=== PATIENT | female | born 1990 | race Caucasian/White ===

== ENCOUNTER 2016-07-24 13:32 | Emergency (ER) | payer OTHER ==
[~2016-07-24] VITALS: Ht 160 cm; Wt 70.0 kg
[~2016-07-24 13:32] MED LIST: IBUP800T25 PO
[2016-07-24 13:35] VITALS: Ht 160 cm; Wt 70.0 kg
[2016-07-24] MEDS ORDERED: SOD CHLORIDE 0.9% 1,000 ML IV STA (15:54)
[2016-07-24] MEDS ORDERED: KETOROLAC 15 MG INJ IV STA (15:54)
[2016-07-24 16:36] LABS: ADD SCAN DIFF NO
[2016-07-24 16:40] LABS: BASOPHIL # 0.1 10^3/ul (0.0-0.1); BASOPHILS % 0.5 % (0.0-2.0); EOSINOPHILS # 0.1 10^3/ul (0.0-0.5); HEMATOCRIT 40.9 % (37.0-47.0); HEMOGLOBIN 13.6 g/dl (12.0-16.0); LYMPHOCYTES # 4.4 10^3/ul (0.8-2.9); LYMPHOCYTES % 38.7 % (15.0-51.0); MEAN CORPUSCULAR HEMOGLOBIN 30.6 pg (29.0-33.0); MEAN CORPUSCULAR HGB CONC 33.3 g/dl (32.0-37.0); MEAN CORPUSCULAR VOLUME 92.1 fl (82.0-101.0); MEAN PLATELET VOLUME 10.4 fl (7.4-10.4); MONOCYTE # 0.7 10^3/ul (0.3-0.9); NEUTROPHIL # 6.1 10^3/ul (1.6-7.5); NEUTROPHILS % 53.4 % (39.0-77.0); PLATELET COUNT 248 10^3/UL (140-415); RED BLOOD COUNT 4.44 10^6/ul (4.20-5.40); RED CELL DISTRIBUTION WIDTH 12.1 % (11.5-14.5); WHITE BLOOD COUNT 11.4 10^3/ul (4.8-10.8)
[2016-07-24 16:51] LABS: ALBUMIN 4.5 g/dl (3.3-4.9); POTASSIUM 4.1 mmol/L (3.5-5.1)
[2016-07-24 16:54] LABS: ALBUMIN/GLOBULIN RATIO 1.55; BILIRUBIN,INDIRECT 0.3 mg/dl (0-1.1); BILIRUBIN,TOTAL 0.3 mg/dl (0.2-1.3); CALCIUM 9.5 mg/dl (8.4-10.2); CREATININE 0.46 mg/dl (0.44-1.00); TOTAL PROTEIN 7.4 g/dl (6.1-8.1)
[2016-07-24 16:57] LABS: ADD UMIC NO; URINE BILIRUBIN (Dip) NEGATIVE (NEGATIVE); URINE BLOOD (Dip) NEGATIVE (NEGATIVE); URINE COLOR LT. YELLOW (YELLOW); URINE GLUCOSE (Dip) NEGATIVE (NEGATIVE); URINE KETONES (Dip) NEGATIVE (NEGATIVE); URINE LEUKOCYTE ESTERASE (Dip) NEGATIVE (NEGATIVE); URINE NITRITE (Dip) NEGATIVE (NEGATIVE); URINE TOTAL PROTEIN (Dip) NEGATIVE (NEGATIVE); URINE UROBILINOGEN (Dip) 0.2 E.U./dL (0.1-1.0)
--- NOTE | 2016-07-24 17:15 | RADRPT ---
PROCEDURE: CT Abdomen and Pelvis without contrast. CLINICAL INDICATION: Abdominal and pelvic pain. Left flank pain. TECHNIQUE: CT scan of the abdomen and pelvis without contrast was performed. Coronal and sagittal reformatted images were obtained from the axial source images. Images were reviewed on a high-resolu OLX PACS workstation. Total exam DLP is 775.38 mGy-cm. CTDIvol is 13.74 mGy. One or more of the f ollowing dose reduction techniques were used: Automated exposure control, adjustment of the mA and/o r kV according to patient size, use of iterative reconstruction technique. COMPARISON: None. FINDINGS: The lung bases are normal. There is no pleural effusion. The liver is normal in size and attenuation. There is no focal hepatic lesion. The gallbladder and bile ducts are normal. The spleen is normal in size. There is no focal splenic lesion. Both adrenals are normal with no enlargement or mass. The pancreas is unremarkable with no mass or evidence of pancreatitis. There is no renal mass or hydronephrosis. There is no renal calculus or ureteral calculus. The abdominal aorta is not dilated. There is no retroperitoneal lymphadenopathy or mass. There is no pelvic lymphadenopathy or mass. The bladder and distal ureters are normal. The periappendiceal region is unremarkable with no evidence of appendicitis. The appendix is well se en and appears normal. The bowel and mesentery are normal. There is no free fluid or free gas. The osseous structures are unremarkable with no fracture or lytic lesion. IMPRESSION: 1. No urinary tract calculus or hydronephrosis. 2. Normal appendix. 3. Unremarkable CT scan of the abdomen and pelvis. RPTAT: QQ .Abdiel Crawford MD, Date Time Electronically viewed and signed by .Abdiel Crawford MD, on 07/24/2016 17:14 .R/
[2016-07-24] MEDS ORDERED: TRAM50TA2 PO (17:21)
[2016-07-24 18:06] VITALS: BP 105/54; PULSE 70; RESP 19; TEMP 98.6
--- NOTE | 2016-07-24 18:08 | ERD ---
ER Documentation Chief Complaint Date/Time DATE: 07/24/16 TIME: 18:02 Chief Complaint lt flank pain x 2 weeks , finished antibiotics for uti last week HPI 25-year-old otherwise healthy woman presents with intermittent left flank pain 2 weeks. She recently finished a course of Cefdnir oral antibiotic for urinary tract infection. She denies hematuria, no fevers or chills, no weight loss, no chest pain or shortness of breath. Patient has been using ibuprofen at home without relief of flank pain. ROS All systems reviewed and are negative except as per history of present illness. Medications Home Meds Active Scripts Tramadol HCl (Tramadol HCl) 50 Mg Tablet, 50 MG PO Q6, #20 TAB Prov:DEE FRAUSTO MD 07/24/16 Ibuprofen* (Motrin*) 800 Mg Tab, 800 MG PO Q6, #30 TAB Prov:ANTHONY DAVILA PA-C 12/25/15 PMhx/Soc Recent UTI Medical and Surgical Hx: pt denies Medical Hx, pt denies Surgical Hx History of Surgery: No Anesthesia Reaction: No Hx Neurological Disorder: No Hx Respiratory Disorders: No Hx Cardiac Disorders: No Hx Psychiatric Problems: No Hx Miscellaneous Medical Probl: No Hx Alcohol Use: No Hx Substance Use: No Hx Tobacco Use: No Smoking Status: Never smoker FmHx Family History: No diabetes Physical Exam Vitals Vital Signs Date Time Temp Pulse Resp B/P Pulse Ox O2 Delivery O2 Flow Rate FiO2 07/24/16 13:35 98.0 82 18 112/66 99 Physical Exam GENERAL: Well-developed, well-nourished, well-hydrated, in no apparent distress , looks nontoxic in appearance HEENT: Moist mucous membranes, pink conjunctiva, no cervical spine tenderness or step-off deformities, no goiter, no jaundice or icterus, extraocular movements intact without pain. No submandibular induration, and no pharyngeal erythema NEURO: Alert and oriented 3, cranial nerves II through XII intact bilaterally, pupils equal round reactive to light, no focal deficits or facial asymmetry, sensation intact distally Strength 5/5 in upper and lower extremities bilaterally CARDIAC: Regular rate and rhythm, no murmurs rubs or gallops LUNGS: Clear bilaterally no wheezing crackles or stridor ABDOMEN: Soft nontender, no guarding, no rigidity, no rebound, no psoas sign no obturator sign. Normoactive bowel sounds SKIN: Warm and dry to touch, no abrasions, contusions, or hematomas, no lacerations, no ecchymosis, no target lesions, and without ulcers EXTREMITIES: No clubbing cyanosis or edema, calves are bilaterally symmetrical, no Homans sign, no popliteal cord sign. Distal pulses equal and bilateral PSYCH: Normal affect without agitation or irritability Result Diagram: 07/24/16 1625 07/24/16 1625 Results 24 hrs Laboratory Tests Test 07/24/16 16:25 07/24/16 16:34 White Blood Count 11.410^3/ul Red Blood Count 4.4410^6/ul Hemoglobin 13.6g/dl Hematocrit 40.9% Mean Corpuscular Volume 92.1fl Mean Corpuscular Hemoglobin 30.6pg Mean Corpuscular Hemoglobin Concent 33.3g/dl Red Cell Distribution Width 12.1% Platelet Count 48631^3/UL Mean Platelet Volume 10.4fl Neutrophils % 53.4% Lymphocytes % 38.7% Monocytes % 6.0% Eosinophils % 1.0% Basophils % 0.5% Nucleated Red Blood Cells % 0.0/100WBC Neutrophils # 6.110^3/ul Lymphocytes # 4.410^3/ul Monocytes # 0.710^3/ul Eosinophils # 0.110^3/ul Basophils # 0.110^3/ul Nucleated Red Blood Cells # 0.010^3/ul Sodium Level 140mmol/L Potassium Level 4.1mmol/L Chloride Level 103mmol/L Carbon Dioxide Level 23mmol/L Anion Gap 18 Blood Urea Nitrogen 7mg/dl Creatinine 0.46mg/dl Glucose Level 86mg/dl Calcium Level 9.5mg/dl Total Bilirubin 0.3mg/dl Direct Bilirubin 0.00mg/dl Indirect Bilirubin 0.3mg/dl Aspartate Amino Transf (AST/SGOT) 21IU/L Alanine Aminotransferase (ALT/SGPT) 32IU/L Alkaline Phosphatase 58IU/L Total Protein 7.4g/dl Albumin 4.5g/dl Globulin 2.90g/dl Albumin/Globulin Ratio 1.55 Lipase 73U/L Urine Color LT. YELLOW Urine Clarity CLEAR Urine pH 6.0 Urine Specific Fleming 1.010 Urine Ketones NEGATIVE Urine Nitrite NEGATIVE Urine Bilirubin NEGATIVE Urine Urobilinogen 0.2 E.U./dL Urine Leukocyte Esterase NEGATIVE Urine Hemoglobin NEGATIVE Urine Glucose NEGATIVE% Urine Total Protein NEGATIVE Current Medications Medications (Trade) Dose Ordered Sig/Kyle Route PRN Reason Start Time Stop Time Status Last Admin Dose Admin Sodium Chloride (NS) 1,000 ml @ 1,000 mls/hr Q1H STAT IV 07/24/16 15:54 07/24/16 16:53 DC 07/24/16 16:21 Ketorolac Tromethamine (Toradol) 15 mg ONCE STAT IV 07/24/16 15:54 07/24/16 15:56 DC 07/24/16 16:34 Procedures/MDM IV line was established patient was placed on camp housekeeper rhythm strip revealed a sinus rhythm at about 80 bpm with upright P and T waves. Patient was afebrile. CT scan of the abdomen and pelvis was performed given her symptoms and it was unremarkable, no acute infectious or inflammatory pathology noted. Please refer to radiologist dictation for full report. Urine test was negative, urine analysis was negative for infection. CBC and electrolytes were normal, liver function tests were normal. I administered 1 L normal saline intravenously and Toradol 15 mg IV with good effect. Pain was completely treated here in the ED. Differential diagnoses considered, included but not limited to cervicitis, ovarian torsion, aortic dissection, abdominal aortic aneurysm, sepsis, stroke, meningitis, encephalitis, pneumonia, appendicitis, cholecystitis, bowel obstruction, pyelonephritis, nephrolithiasis, cystitis, as well as metabolic, hematologic, and electrolyte abnormalities. As well as abscess, cellulitis, fractures, and dislocations. Patient feels much better at this time, and vital signs are normal, symptoms have improved. I did give strict instructions to return to the ED if symptoms continue or worsen, patient will otherwise follow-up with primary care physician. Patient understood instructions and agreed to plan. Departure Diagnosis: Primary Impression: Flank pain Condition: Good Patient Instructions: Flank Pain, Uncertain Cause DEE FRAUSTO MD Jul 24, 2016 18:08
== END 2016-07-24 18:08 | disposition home or self-care (01) ==
LOC: FTE 13:32
DX: R10.9 Unspecified abdominal pain (principal); R10.2 Pelvic and perineal pain
CPT/HCPCS: 74176; 80053; 81003; 83690; 85025; 87086; J1885; J7030; 96374